=== PATIENT | male | born 1960 | race Caucasian/White ===

== ENCOUNTER → 2016-08-21 | Outpatient (REF) ==
--- NOTE | 2016-08-21 13:26 | REP ---
Clinical: Pain and disability. Technique: AP, lateral, bilateral oblique and sunrise views of the left knee. Findings: Moderate tricompartmental osteoarthritic degenerative changes includes joint space narrowing, subchondral sclerosis, cortical irregularity and early spurring/osteophyte formation. [place] view demonstrates similar findings involving the patellofemoral joint space as well as fraying along the anterior patellar margin. No acute fracture dislocation. No obvious effusion. Impression: Moderate tricompartmental osteoarthritic degenerative changes. Signed by Mani Bellamy MD 08/21/2016 01:18 P
== END ==
LOC: M SMT 12:53
PROVIDERS: ATTEND Internal Medicine
DX: M25.562 Pain in left knee (principal)